=== PATIENT | male | born 1980 ===

== ENCOUNTER 2018-03-27 15:14 | Observation (INO) ==
[2018-03-28 12:30] VITALS: BP 130/77
== END 2018-03-28 13:40 | disposition home or self-care (01) ==
LOC: EDBD → EDUNIT# → N.ED 15:14 → N.EDINP 15:14 → N.2E 16:30
PROVIDERS: ADMIT Surgery; ATTEND Surgery

== ENCOUNTER 2021-01-02 16:09 | Inpatient (IN) ==
[2021-01-02] MEDS ORDERED: DILTIAZEM 25 MG/5 ML VIAL IV ONE (16:23)
[2021-01-02] MEDS ORDERED: DILTIAZEM 100 MG VIAL.ADD IV ONE (16:23)
[2021-01-02 16:31] LABS: Basophils % 0.4 % (0.0-0.8); Eosinophils % 0.2 % (0.00-10.9); Hematocrit 32.9 VOL% (42.0-52.0); Hemoglobin 11.9 GM/DL (14.0-18.0); Immature Granulocytes % 0.5 %; Immature Granulocytes Absolute 0.04 #; Lymphocytes # 1.9 10*3/uL (1.4-4.0); Lymphocytes % 24.1 % (21.2-54.2); Mean Corpuscular HGB Conc 36.2 GM/DL (32-36); Mean Corpuscular Volume 94.3 FL (87-102); Mean Platelet Volume 8.5 FL (9.6-12.0); Neutrophils % 67.8 % (38.7-73.9); Platelet Count 317 T/CUMM (130-400); Red Blood Count 3.49 MC/CUMM (3.8-5.5)
[2021-01-02] MEDS ORDERED: SODIUM CHLORIDE 0.9% 1,000 ML IV STA (16:35)
[2021-01-02] MEDS ORDERED: DILTIAZEM 50 MG/10 ML VIAL IV STA ×2 (16:35→16:53)
[2021-01-02 16:42] LABS: PT Patient Result 10.3 SECS (9.8-11.9); Partial Thromboplastin Time 28.5 SECS (23.9-33.8)
[2021-01-02] MEDS ORDERED: THIAMINE INJ 100 MG, FOLIC ACID INJ 1 MG, MAGNESIUM SULF INJ 2 GM, MULTIVITAMIN INJ 10 ... IV ONE (16:42)
[2021-01-02] MEDS: DILTIAZEM INJ 100 MG in SODIUM CHLORIDE 0.9% 100 ML IV SCH (16:45)
[2021-01-02 16:48] LABS: Albumin 3.5 G/DL (3.4-5.0); Bilirubin,Total 0.5 MG/DL (0.2-1.0); Calcium 7.9 MG/DL (8.5-10.1); Osmolality,Calculated 284.8 MOS/KG (273-304); Potassium 3.9 MMOL/L (3.5-5.1); Total Protein 7.3 G/DL (6.4-8.2)
[2021-01-02 18:43] LABS: Barbiturates Screen,Urine Negative (Negative); Benzodiazepines Screen,Urine Negative (Negative); Cannabinoid Screen,Urine Negative (Negative); Opiate Screen,Urine Negative (Negative); Phencyclidine Screen,Urine Negative (Negative)
[2021-01-02] MEDS ORDERED: MORPHINE 4 MG/1 ML VIAL IV PRN (19:17)
[2021-01-02] MEDS ORDERED: DEXTROSE 50% 25 GM/50 ML VIAL IV PRN ×2 (19:17)
[2021-01-02] MEDS ORDERED: ACETAMINOPHEN 325 MG TABLET PO PRN (19:17)
[2021-01-02] MEDS ORDERED: GLUCAGON 1 MG VIAL IM PRN ×2 (19:17)
[2021-01-02] MEDS ORDERED: ONDANSETRON 4 MG/2 ML VIAL IV PRN (19:17)
[2021-01-02] MEDS ORDERED: NICOTINE 21 MG/24 HR PATCH TRANSDERM PRN (19:17)
[2021-01-02] MEDS ORDERED: LORazepam 2 MG/1 ML VIAL IV PRN (19:22)
[2021-01-02] MEDS ORDERED: chlordiazePOXIDE 25 MG CAPSULE PO PRN (19:22)
[2021-01-02] MEDS ORDERED: MAGNESIUM SULF RIDER 2 GM in PREMIX 1 EACH IV STA (19:25)
[2021-01-02 20:20] LABS: Folate 9.9 NG/ML (5.38-24.0)
[2021-01-02] MEDS: INSULIN REGULAR 100 UNIT/ML SUBCUT SCH (21:59)
[2021-01-02] MEDS: ENOXAPARIN 80 MG/0.8 ML SYRINGE SUBCUT SCH (22:03)
[2021-01-02] MEDS: SODIUM CHLORIDE 0.9% 1,000 ML IV SCH (22:11)
[2021-01-03 05:38] LABS: Basophils % 0.5 % (0.0-0.8); Eosinophils # 0.1 10*3/uL (0.0-0.87); Eosinophils % 0.7 % (0.00-10.9); Hemoglobin 10.7 GM/DL (14.0-18.0); Immature Granulocytes % 0.5 %; Immature Granulocytes Absolute 0.04 #; Lymphocytes # 1.9 10*3/uL (1.4-4.0); Lymphocytes % 22.8 % (21.2-54.2); Mean Corpuscular HGB Conc 35.7 GM/DL (32-36); Mean Corpuscular Volume 94.6 FL (87-102); Mean Platelet Volume 8.8 FL (9.6-12.0); Monocytes % 9.5 % (1.7-12.7); Platelet Count 280 T/CUMM (130-400); Red Blood Count 3.17 MC/CUMM (3.8-5.5); White Blood Count 8.3 T/CUMM (4-12)
[2021-01-03 06:19] LABS: Albumin 2.8 G/DL (3.4-5.0); Bilirubin,Total 0.8 MG/DL (0.2-1.0); Calcium 7.5 MG/DL (8.5-10.1); Osmolality,Calculated 284.3 MOS/KG (273-304); Potassium 3.8 MMOL/L (3.5-5.1); Risk Ratio 4.08; Total Protein 6.2 G/DL (6.4-8.2); VLDL CHOLESTEROL 35.4 MG/DL
[2021-01-03] MEDS: SODIUM CHLORIDE 0.9% 1,000 ML IV SCH ×3 (06:36→21:16)
[2021-01-03] MEDS: PANTOPRAZOLE 40 MG TABLET PO SCH (08:48)
[2021-01-03] MEDS: ASPIRIN CHEW 81 MG TABLET PO SCH (08:48)
[2021-01-03] MEDS: FOLIC ACID 1 MG TABLET PO SCH (08:48)
[2021-01-03] MEDS: MULTIVITAMIN (CENTRUM) TABLET PO SCH (08:48)
[2021-01-03] MEDS: THIAMINE 200 MG/2 ML VIAL IV SCH (08:50)
[2021-01-03] MEDS: ENOXAPARIN 80 MG/0.8 ML SYRINGE SUBCUT SCH ×2 (08:50→21:00)
[2021-01-03] MEDS: INSULIN REGULAR 100 UNIT/ML SUBCUT SCH ×4 (09:04→21:17)
[2021-01-03] MEDS: DILTIAZEM INJ 100 MG in SODIUM CHLORIDE 0.9% 100 ML IV SCH ×2 (09:17→16:42)
[2021-01-03] MEDS ORDERED: AZITHROMYCIN INJ 500 MG in SODIUM CHLORIDE 0.9% 250 ML IV ONE (17:19)
[2021-01-03] MEDS: cefTRIAXone 1,000 MG in SODIUM CHLORIDE 0.9% 100 ML IV SCH (21:18)
[2021-01-04] MEDS: SODIUM CHLORIDE 0.9% 1,000 ML IV SCH ×3 (03:30→20:18)
[2021-01-04 05:27] LABS: Calcium 7.7 MG/DL (8.5-10.1); Osmolality,Calculated 274.8 MOS/KG (273-304); Potassium 3.3 MMOL/L (3.5-5.1)
[2021-01-04 05:42] LABS: Basophils % 0.2 % (0.0-0.8); Eosinophils % 0.4 % (0.00-10.9); Hematocrit 32.8 VOL% (42.0-52.0); Immature Granulocytes % 0.4 %; Immature Granulocytes Absolute 0.04 #; Lymphocytes % 21.4 % (21.2-54.2); Mean Corpuscular HGB Conc 37.8 GM/DL (32-36); Mean Corpuscular Volume 91.1 FL (87-102); Monocytes % 8.1 % (1.7-12.7); Neutrophils % 69.5 % (38.7-73.9); Platelet Count 262 T/CUMM (130-400); Red Cell Distribution Width 11.6 % (9.3-17.3); White Blood Count 9.1 T/CUMM (4-12)
[2021-01-04 05:46] LABS: Hemoglobin 12.4 GM/DL (14.0-18.0)
[2021-01-04 05:49] LABS: Hypochromasia 1+; Ovalocytes 1+
[2021-01-04 05:50] LABS: Platelet Estimate Normal
[2021-01-04] MEDS ORDERED: MAGNESIUM SULF RIDER 4 GM in PREMIX 1 EACH IV ONE (07:50)
[2021-01-04] MEDS: INSULIN REGULAR 100 UNIT/ML SUBCUT SCH ×4 (08:36→20:20)
[2021-01-04] MEDS: DILTIAZEM INJ 100 MG in SODIUM CHLORIDE 0.9% 100 ML IV SCH ×2 (08:39→18:19)
[2021-01-04] MEDS: THIAMINE 200 MG/2 ML VIAL IV SCH (08:41)
[2021-01-04] MEDS ORDERED: POTASSIUM CHLORIDE 20 MEQ TABLET PO ONE (08:50)
[2021-01-04] MEDS ORDERED: MIDAZOLAM 2 MG/2 ML VIAL ONE (13:02)
[2021-01-04] MEDS ORDERED: LIDOCAINE 2% 5 ML VIAL ONE (13:02)
[2021-01-04] MEDS ORDERED: propofoL 200 MG/20 ML VIAL IV ONE (13:02)
[2021-01-04] MEDS: MULTIVITAMIN (CENTRUM) TABLET PO SCH (14:23)
[2021-01-04] MEDS: FOLIC ACID 1 MG TABLET PO SCH (14:23)
[2021-01-04] MEDS: PANTOPRAZOLE 40 MG TABLET PO SCH (14:23)
[2021-01-04] MEDS: ASPIRIN CHEW 81 MG TABLET PO SCH (14:23)
[2021-01-04] MEDS: DILTIAZEM 90 MG TABLET PO SCH ×3 (14:24→23:14)
[2021-01-04] MEDS: AZITHROMYCIN INJ 250 MG in SODIUM CHLORIDE 0.9% 250 ML IV SCH (17:43)
[2021-01-04] MEDS: cefTRIAXone 1,000 MG in SODIUM CHLORIDE 0.9% 100 ML IV SCH (20:21)
[2021-01-05] MEDS: SODIUM CHLORIDE 0.9% 1,000 ML IV SCH (02:32)
[2021-01-05] MEDS: DILTIAZEM 90 MG TABLET PO SCH ×4 (05:13→23:04)
[2021-01-05 05:16] LABS: Basophils % 0.4 % (0.0-0.8); Eosinophils # 0.1 10*3/uL (0.0-0.87); Hematocrit 31.5 VOL% (42.0-52.0); Hemoglobin 11.7 GM/DL (14.0-18.0); Immature Granulocytes % 0.4 %; Immature Granulocytes Absolute 0.02 #; Lymphocytes # 1.6 10*3/uL (1.4-4.0); Lymphocytes % 33.1 % (21.2-54.2); Mean Corpuscular HGB Conc 37.1 GM/DL (32-36); Mean Corpuscular Volume 91.3 FL (87-102); Neutrophils % 55.1 % (38.7-73.9); Platelet Count 258 T/CUMM (130-400); Red Blood Count 3.45 MC/CUMM (3.8-5.5); Red Cell Distribution Width 11.7 % (9.3-17.3); White Blood Count 4.9 T/CUMM (4-12)
[2021-01-05 05:42] LABS: Calcium 7.8 MG/DL (8.5-10.1); Potassium 3.6 MMOL/L (3.5-5.1)
[2021-01-05] MEDS ORDERED: MAGNESIUM SULF RIDER 4 GM in PREMIX 1 EACH IV ONE (07:48)
[2021-01-05] MEDS: MULTIVITAMIN (CENTRUM) TABLET PO SCH (09:41)
[2021-01-05] MEDS: FOLIC ACID 1 MG TABLET PO SCH (09:41)
[2021-01-05] MEDS: ASPIRIN CHEW 81 MG TABLET PO SCH (09:41)
[2021-01-05] MEDS: PANTOPRAZOLE 40 MG TABLET PO SCH (09:41)
[2021-01-05] MEDS: THIAMINE 200 MG/2 ML VIAL IV SCH (09:42)
[2021-01-05] MEDS: INSULIN REGULAR 100 UNIT/ML SUBCUT SCH ×4 (09:49→20:29)
[2021-01-05] MEDS ORDERED: FUROSEMIDE 40 MG/4 ML VIAL IV ONE (10:53)
[2021-01-05] MEDS ORDERED: LIDOCAINE 1% 20 ML VIAL ONE (11:56)
[2021-01-05] MEDS ORDERED: HEPARIN/NACL 0.9% 2 UNITS/ML 3,000 UNIT/1,500 ML BAG IV ONE (11:56)
[2021-01-05] MEDS ORDERED: fentaNYL 100 MCG/2 ML VIAL ONE (12:18)
[2021-01-05] MEDS ORDERED: MIDAZOLAM 2 MG/2 ML VIAL ONE (12:18)
[2021-01-05] MEDS ORDERED: HEPARIN 5,000 UNIT/1 ML VIAL ONE (12:54)
[2021-01-05] MEDS ORDERED: CLOPIDOGREL 300 MG TABLET ONE (13:05)
[2021-01-05] MEDS ORDERED: NITROGLYCERIN DRIP 50 MG/250 ML BOTTLE IV ONE (13:10)
[2021-01-05] MEDS ORDERED: GLUCAGON 1 MG VIAL IM PRN (15:27)
[2021-01-05] MEDS ORDERED: DEXTROSE 50% 25 GM/50 ML VIAL IV PRN (15:27)
[2021-01-05] MEDS: AZITHROMYCIN INJ 250 MG in SODIUM CHLORIDE 0.9% 250 ML IV SCH (18:12)
[2021-01-05] MEDS: cefTRIAXone 1,000 MG in SODIUM CHLORIDE 0.9% 100 ML IV SCH (20:30)
[2021-01-06 04:57] LABS: Basophils % 0.4 % (0.0-0.8); Eosinophils # 0.1 10*3/uL (0.0-0.87); Eosinophils % 1.1 % (0.00-10.9); Hematocrit 33.2 VOL% (42.0-52.0); Hemoglobin 12.1 GM/DL (14.0-18.0); Immature Granulocytes % 0.5 %; Immature Granulocytes Absolute 0.05 #; Lymphocytes # 1.8 10*3/uL (1.4-4.0); Lymphocytes % 18.2 % (21.2-54.2); Mean Corpuscular HGB Conc 36.4 GM/DL (32-36); Mean Platelet Volume 8.9 FL (9.6-12.0); Monocytes % 5.5 % (1.7-12.7); Neutrophils % 74.3 % (38.7-73.9); Platelet Count 287 T/CUMM (130-400); Red Blood Count 3.57 MC/CUMM (3.8-5.5); Red Cell Distribution Width 11.5 % (9.3-17.3); White Blood Count 9.9 T/CUMM (4-12)
[2021-01-06] MEDS: DILTIAZEM 90 MG TABLET PO SCH (05:08)
[2021-01-06 05:27] LABS: Calcium 8.3 MG/DL (8.5-10.1); Osmolality,Calculated 277.1 MOS/KG (273-304); Potassium 3.8 MMOL/L (3.5-5.1)
[2021-01-06] MEDS ORDERED: MAGNESIUM SULF RIDER 2 GM in PREMIX 1 EACH IV ONE (07:49)
[2021-01-06] MEDS: INSULIN REGULAR 100 UNIT/ML SUBCUT SCH ×2 (08:06→11:45)
[2021-01-06] MEDS ORDERED: ATORVASTATIN 40 MG TABLET PO SCH (09:00)
[2021-01-06] MEDS ORDERED: CLOPIDOGREL 75 MG TABLET PO SCH (09:00)
[2021-01-06] MEDS: FOLIC ACID 1 MG TABLET PO SCH (09:02)
[2021-01-06] MEDS: THIAMINE 200 MG/2 ML VIAL IV SCH (09:02)
[2021-01-06] MEDS: PANTOPRAZOLE 40 MG TABLET PO SCH (09:03)
[2021-01-06] MEDS: ASPIRIN CHEW 81 MG TABLET PO SCH (09:03)
[2021-01-06] MEDS: MULTIVITAMIN (CENTRUM) TABLET PO SCH (09:03)
[2021-01-06] MEDS ORDERED: METOPROLOL TARTRATE 25 MG TABLET PO SCH (09:48)
[2021-01-06] MEDS ORDERED: DILTIAZEM CD 180 MG CAPSULE PO SCH (12:00)
[2021-01-06 15:56] VITALS: BP 120/84
== END 2021-01-06 17:05 | disposition home or self-care (01) | DRG 248 ==
LOC: EDUNIT# → EDBD → N.ED 16:09 → N.EDINP 19:16 → N.TELEN 20:08
PROVIDERS: ADMIT Internal Medicine; ATTEND Internal Medicine

== ENCOUNTER 2021-01-13 00:06 | Observation (INO) ==
[2021-01-13] MEDS ORDERED: SODIUM CHLORIDE 0.9% 1,000 ML IV STA (00:46)
[2021-01-13 00:51] LABS: Basophils # 0.1 10*3/uL (0.0-0.2); Basophils % 1.1 % (0.0-0.8); Eosinophils # 0.2 10*3/uL (0.0-0.87); Eosinophils % 3.8 % (0.00-10.9); Hematocrit 33.9 VOL% (42.0-52.0); Hemoglobin 12.2 GM/DL (14.0-18.0); Immature Granulocytes % 0.6 %; Immature Granulocytes Absolute 0.03 #; Lymphocytes # 2.1 10*3/uL (1.4-4.0); Mean Corpuscular Volume 93.9 FL (87-102); Mean Platelet Volume 8.7 FL (9.6-12.0); Neutrophils % 42.5 % (38.7-73.9); Platelet Count 337 T/CUMM (130-400); Red Blood Count 3.61 MC/CUMM (3.8-5.5); Red Cell Distribution Width 12.2 % (9.3-17.3); White Blood Count 5.3 T/CUMM (4-12)
[2021-01-13 01:02] LABS: PT Patient Result 11.3 SECS (9.8-11.9); Partial Thromboplastin Time 28.3 SECS (23.9-33.8)
[2021-01-13 01:07] LABS: Alanine Aminotransferase 24 U/L (16-61); Albumin 3.4 G/DL (3.4-5.0); Alkaline Phosphatase 87 U/L (45-117); Amylase 53 U/L (25-115); Aspartate Amino Transferase 11 U/L (0-37); Bilirubin,Total < 0.39 MG/DL (0.2-1.0); Blood Urea Nitrogen 16 MG/DL (7-18); Calcium 8.4 MG/DL (8.5-10.1); Carbon Dioxide 26 MMOL/L (21-32); Estimated Glom Filtration Rate 132 ML/MIN; Glucose 221 MG/DL (74-106); Osmolality,Calculated 277.1 MOS/KG (273-304); Potassium 3.5 MMOL/L (3.5-5.1); Sodium 135 MMOL/L (136-145); Total Protein 7.4 G/DL (6.4-8.2); Troponin I < 0.015 NG/ML (0.00-0.045)
[2021-01-13] MEDS ORDERED: DEXTROSE 50% 25 GM/50 ML VIAL IV PRN ×2 (02:39→05:34)
[2021-01-13] MEDS ORDERED: hydrALAZINE 20 MG/1 ML VIAL IV PRN (02:39)
[2021-01-13] MEDS ORDERED: NICOTINE 21 MG/24 HR PATCH TRANSDERM PRN (02:39)
[2021-01-13] MEDS ORDERED: ONDANSETRON 4 MG/2 ML VIAL IV PRN (02:39)
[2021-01-13] MEDS ORDERED: ACETAMINOPHEN 325 MG TABLET PO PRN (02:39)
[2021-01-13] MEDS ORDERED: diphenhydrAMINE CAP 25 MG CAPSULE PO PRN (02:39)
[2021-01-13] MEDS ORDERED: GLUCAGON 1 MG VIAL IM PRN (02:39)
[2021-01-13 03:06] LABS: Barbiturates Screen,Urine Negative (Negative); Benzodiazepines Screen,Urine Negative (Negative); Cannabinoid Screen,Urine Negative (Negative); Opiate Screen,Urine Negative (Negative); Phencyclidine Screen,Urine Negative (Negative)
[2021-01-13 03:16] LABS: Mucus,Urine Few /LPF (Occasional); RBC,Urine 1 /HPF (0-4); Squamous Epithelial Cell,Urine Occasional /HPF (0-10)
[2021-01-13 03:21] LABS: Bilirubin,Urine Negative (Negative); Blood, Urine Negative (Negative); Glucose,Urine (UA) Negative (Negative); Ketones,Urine Negative (Negative); Nitrite,Urine Negative (Negative); Protein,Urine Negative; Urine Appearance Clear (Clear); Urine Color Yellow (Yellow); Urine Specific Gravity 1.015 (1.001-1.035); Urine Urobilinogen < 2.0 EU/DL (0.2-1.0)
[2021-01-13] MEDS: INSULIN REGULAR 100 UNIT/ML SUBCUT SCH ×2 (08:34→12:13)
[2021-01-13] MEDS ORDERED: CLOPIDOGREL 75 MG TABLET PO SCH (09:00)
[2021-01-13] MEDS ORDERED: METOPROLOL TARTRATE 25 MG TABLET PO SCH (09:00)
[2021-01-13] MEDS ORDERED: ASPIRIN EC 81 MG TABLET PO SCH (09:00)
[2021-01-13] MEDS ORDERED: DILTIAZEM CD 180 MG CAPSULE PO SCH (09:00)
[2021-01-13] MEDS ORDERED: ATORVASTATIN 40 MG TABLET PO SCH (09:00)
[2021-01-13 13:12] VITALS: BP 126/99
== END 2021-01-13 15:37 | disposition home or self-care (01) ==
LOC: EDUNIT# → EDBD → N.ED 00:06 → N.EDINP 00:06 → N.TELES 06:27
PROVIDERS: ADMIT Internal Medicine; ATTEND Internal Medicine

== ENCOUNTER 2021-03-08 15:47 | Observation (INO) ==
[2021-03-08] MEDS ORDERED: SODIUM CHLORIDE 0.9% 1,000 ML IV STA (16:12)
[2021-03-08] MEDS ORDERED: ONDANSETRON 4 MG/2 ML VIAL IV ONE (16:41)
[2021-03-08 16:49] LABS: Basophils % 0.7 % (0.0-0.8); Eosinophils # 0.1 10*3/uL (0.0-0.87); Eosinophils % 2.2 % (0.00-10.9); Hematocrit 36.8 VOL% (42.0-52.0); Hemoglobin 13.1 GM/DL (14.0-18.0); Immature Granulocytes % 0.2 %; Immature Granulocytes Absolute 0.01 #; Lymphocytes # 3.3 10*3/uL (1.4-4.0); Lymphocytes % 55.3 % (21.2-54.2); Mean Corpuscular HGB Conc 35.6 GM/DL (32-36); Mean Corpuscular Volume 90.2 FL (87-102); Mean Platelet Volume 8.5 FL (9.6-12.0); Monocytes % 6.4 % (1.7-12.7); Neutrophils % 35.2 % (38.7-73.9); Platelet Count 248 T/CUMM (130-400); Red Blood Count 4.08 MC/CUMM (3.8-5.5); Red Cell Distribution Width 12.1 % (9.3-17.3)
[2021-03-08 16:58] LABS: Bacteria,Urine Occasional /HPF (Few); Bilirubin,Urine Negative (Negative); Blood, Urine Negative (Negative); Glucose,Urine (UA) >=500 mg/dL (Negative); Ketones,Urine Negative (Negative); Nitrite,Urine Negative (Negative); Protein,Urine Negative; RBC,Urine 1 /HPF (0-4); Urine Appearance CLEAR (Clear); Urine Color Straw (Yellow); Urine Specific Gravity 1.002 (1.001-1.035); Urine Urobilinogen < 2.0 EU/DL (0.2-1.0)
[2021-03-08 17:00] LABS: Barbiturates Screen,Urine Negative (Negative); Benzodiazepines Screen,Urine Negative (Negative); Cannabinoid Screen,Urine Negative (Negative); Opiate Screen,Urine Negative (Negative); Phencyclidine Screen,Urine Negative (Negative)
[2021-03-08 17:36] LABS: Alanine Aminotransferase 18 U/L (16-61); Albumin 3.9 G/DL (3.4-5.0); Alkaline Phosphatase 61 U/L (45-117); Aspartate Amino Transferase 16 U/L (0-37); Bilirubin,Total < 0.39 MG/DL (0.2-1.0); Blood Urea Nitrogen 7 MG/DL (7-18); Calcium 8.2 MG/DL (8.5-10.1); Carbon Dioxide 27 MMOL/L (21-32); Estimated Glom Filtration Rate 142 ML/MIN; Glucose 239 MG/DL (74-106); Osmolality,Calculated 284.4 MOS/KG (273-304); Potassium 3.9 MMOL/L (3.5-5.1); Sodium 140 MMOL/L (136-145); Total Protein 7.3 G/DL (6.4-8.2)
[2021-03-08] MEDS ORDERED: ASPIRIN CHEW 81 MG TABLET PO STA (17:51)
[2021-03-08] MEDS ORDERED: GLUCAGON 1 MG VIAL IM PRN ×2 (18:12)
[2021-03-08] MEDS ORDERED: DEXTROSE 50% 25 GM/50 ML VIAL IV PRN ×2 (18:12)
[2021-03-08] MEDS ORDERED: NICOTINE 21 MG/24 HR PATCH TRANSDERM PRN (18:17)
[2021-03-08] MEDS ORDERED: ENOXAPARIN 40 MG/0.4 ML SYRINGE SUBCUT SCH (18:30)
[2021-03-08 18:40] LABS: Band Neutrophils 1 % (0-10); Eosinophils 2 % (0-10); Lymphocytes 41 % (20-55); Platelet Estimate Normal; Segmented Neutrophils 49 % (50-85); Total Cells Counted 100
[2021-03-08] MEDS ORDERED: PANTOPRAZOLE 40 MG VIAL IV ONE (18:59)
[2021-03-08] MEDS: SODIUM CHLORIDE 0.9% 1,000 ML IV SCH (19:10)
[2021-03-08] MEDS ORDERED: chlordiazePOXIDE 25 MG CAPSULE PO PRN (19:24)
[2021-03-08] MEDS ORDERED: THIAMINE INJ 100 MG, FOLIC ACID INJ 1 MG, MULTIVITAMIN INJ 10 ML in SODIUM CHLORIDE 0.9... IV SCH (19:30)
[2021-03-08] MEDS ORDERED: INSULIN GLARGINE 100 UNIT/ML SUBCUT SCH (21:00)
[2021-03-08] MEDS: INSULIN LISPRO 100 UNIT/ML SUBCUT SCH (21:36)
[2021-03-09] MEDS: SODIUM CHLORIDE 0.9% 1,000 ML IV SCH ×2 (00:50→09:32)
[2021-03-09 05:59] LABS: Basophils % 0.7 % (0.0-0.8); Eosinophils # 0.1 10*3/uL (0.0-0.87); Eosinophils % 2.6 % (0.00-10.9); Hematocrit 31.9 VOL% (42.0-52.0); Hemoglobin 11.5 GM/DL (14.0-18.0); Immature Granulocytes % 0.2 %; Immature Granulocytes Absolute 0.01 #; Lymphocytes # 1.4 10*3/uL (1.4-4.0); Lymphocytes % 33.7 % (21.2-54.2); Mean Corpuscular HGB Conc 36.1 GM/DL (32-36); Mean Corpuscular Volume 91.1 FL (87-102); Mean Platelet Volume 8.8 FL (9.6-12.0); Monocytes % 10.3 % (1.7-12.7); Neutrophils % 52.5 % (38.7-73.9); Platelet Count 224 T/CUMM (130-400); White Blood Count 4.2 T/CUMM (4-12)
[2021-03-09 06:22] LABS: Albumin 3.1 G/DL (3.4-5.0); Bilirubin,Total 0.4 MG/DL (0.2-1.0); Calcium 7.8 MG/DL (8.5-10.1); Osmolality,Calculated 277.5 MOS/KG (273-304); Potassium 3.8 MMOL/L (3.5-5.1); Risk Ratio 2.54; Thyroid Stimulating Hormone 0.821 uIU/ml (0.358-3.74); Total Protein 6.5 G/DL (6.4-8.2)
[2021-03-09] MEDS: INSULIN LISPRO 100 UNIT/ML SUBCUT SCH ×2 (08:37→12:43)
[2021-03-09] MEDS ORDERED: MAGNESIUM SULF RIDER 4 GM/100 ML PREMIX IV PRN (08:48)
[2021-03-09] MEDS ORDERED: MAGNESIUM SULF RIDER 2 GM/50 ML PREMIX IV PRN (08:48)
[2021-03-09] MEDS ORDERED: ASPIRIN EC 81 MG TABLET PO SCH (09:00)
[2021-03-09] MEDS ORDERED: DILTIAZEM CD 180 MG CAPSULE PO SCH (09:00)
[2021-03-09] MEDS ORDERED: CLOPIDOGREL 75 MG TABLET PO SCH (09:00)
[2021-03-09] MEDS ORDERED: PANTOPRAZOLE 40 MG VIAL IV SCH (09:00)
[2021-03-09] MEDS ORDERED: METOPROLOL TARTRATE 25 MG TABLET PO SCH (09:00)
[2021-03-09] MEDS ORDERED: ATORVASTATIN 40 MG TABLET PO SCH (09:00)
[2021-03-09 12:39] VITALS: BP 160/109
== END 2021-03-09 13:45 | disposition home or self-care (01) ==
LOC: EDBD → EDUNIT# → N.EDINP 15:47 → N.ED 15:47 → N.EDINP 20:30 → N.TELEN 21:14
PROVIDERS: ADMIT Internal Medicine; ATTEND Internal Medicine